=== PATIENT | male | born 1980 | race Two or more races ===

== ENCOUNTER 2017-10-23 08:46 | Inpatient (IN) | payer BC, OTHER ==
[~2017-10-23] VITALS: Ht 180.3 cm; Wt 81.6 kg
[~2017-10-23 08:46] MED LIST: GABA600T PO; MULT-24 PO; QUET25TA PO; ZOLP10TA2 PO
[2017-10-25 15:00] VITALS: BP 128/91
--- NOTE | 2017-10-25 15:15 | NUR ---
INTAKE ASSESSMENT Patient is 36yo male patient presented for admission for supervised withdrawal from heroin, cocaine, xanax and alcohol. Vital signs: 128/91, HR 105-110, R 18, Temp 96.6, 02 sat 95% RA. Patient denies any SOB and chest pain. Patient appears restless at times and sweating and intermittently falls asleep during the interview. Patient is poor historian. Explained to patient (i.e q4h vital, medication handling including narcotics, disposal of any contraband. Patient has no home meds. Patient appears to be stable to proceed with his admission to [facility] for further care.
[2017-10-25] MEDS ORDERED: LOPERAMIDE HCL 2 MG CAPSULE PO PRN ×2 (15:30)
[2017-10-25] MEDS ORDERED: ONDANSETRON 4 MG/2 ML VIAL IM PRN (15:30)
[2017-10-25] MEDS ORDERED: BUPRENORPHINE HCL 2 MG TAB.SUBL SL PRN (15:30)
[2017-10-25] MEDS ORDERED: DICYCLOMINE HCL 20 MG TABLET PO PRN (15:30)
[2017-10-25] MEDS ORDERED: MAG HYDROX/AL HYDROX/SIMETH 30 ML LIQUID UDC PO PRN (15:30)
[2017-10-25] MEDS ORDERED: ACETAMINOPHEN 325 MG TABLET PO PRN (15:30)
[2017-10-25] MEDS ORDERED: MIRALAX 17 GM POWD.PACK PO PRN (15:30)
[2017-10-25] MEDS ORDERED: NICOTINE 14 MG/24HR PATCH TD PRN (15:30)
[2017-10-25] MEDS ORDERED: NICOTINE POLACRILEX 4 MG GUM-PK OF TEN BC PRN (15:30)
[2017-10-25] MEDS ORDERED: hydrALAZINE HCL 50 MG TABLET PO PRN (15:30)
[2017-10-25] MEDS ORDERED: MAGNESIUM HYDROXIDE 30 ML LIQUID UDC PO PRN (15:30)
[2017-10-25] MEDS ORDERED: LORAZEPAM 1 MG TABLET PO PRN ×2 (15:30)
[2017-10-25] MEDS ORDERED: ONDANSETRON ODT 4 MG TAB.RAPDIS SL PRN (15:30)
[2017-10-25] MEDS ORDERED: THIAMINE HCL 200 MG/2 ML VIAL IM ONE (15:30)
[2017-10-25] MEDS ORDERED: LORAZEPAM 2 MG/1 ML VIAL IM PRN (15:30)
[2017-10-25] MEDS ORDERED: diphenhydrAMINE 50 MG CAPSULE PO PRN (15:30)
--- NOTE | 2017-10-25 18:24 | NUR ---
INITIAL ADMISSION NOTE Patient arrived at 17:45pm. Skin assessed upon arrival, BUE cellulitis and abscess noted. Unable to do admission interview with patient. Patient fell asleep right away once he laid in his bed and was difficult to arouse for interview. Patient's breathing is non-labored. Chain Link Fence Installer informed charge nurse. 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 Patient was a poor historian during intake assessment regarding his substance usage. Subtance use history per patient report: 1) Heroin (IV) - pt. reports last use was 10/25/17 (1gm). Patient unable to respond date when 1st used, frequency and how long he has been using at this rate 2) Xanax - pt. reports last use was 10/25/17 (used 10mg) 3) Zolpidem - pt. reports last used was 10/24/17, used 5-10mg 3) Cocaine - last used 10/25/17, pt. unable to state quantity 4) Alcohol - pt. reports last use was 10/25/17 (drank 4-5 shots, drank daily but unable to state how long he used, pt. states he became dependent in his 20's 4) Cannabis - pt unable to states last used and quantity. Rehab history: Longest sobriety was 3-4 years.
--- NOTE | 2017-10-25 19:30 | NUR ---
Start of Shift Note: Received pt in room asleep in bed with no s/s of distress noted. Pt noted to be sedated. Patient is easily arousable when called by his name but falls back to sleep easily. Pt is stable at this time with no s/s of distress noted. Pt is a 36 y.o male admitted today 10/25/17 at 1735 for medically supervised withdrawal from Benzo, ETOH and Opiate. Patient follows a regular diet at home with no known food and drug allergies. Pt wishes to be full Code. Patient has PMHx of Depression & Anxiety. No seizure history noted. Patient is a poor historian. Patient is alert & oriented to name & place & situation. Unable to recall time. Speech is slurred and tangential. No shortness of breath noted. Repsiration even & unlabored. Abdomen soft & non-distended. No nausea/vomiting noted. Patient denies pain/discomfort. No complaints noted. No hand tremors. Pt denies any hallucinations. COWS 1 CIWA noted. Vitals stable. Pt denies any SI/HI. Pt has not provided Urine for drug screen during admission. Will continue to monitor patient. Safety measures in place. Bed locked in lowest position. Both side rails up. Call light within pt's reach.
[2017-10-25 20:30] VITALS: BP 104/62
[2017-10-25 20:56] LABS: BASOPHILS % (AUTO) 0.6 % (0.0-2.0); EOSINOPHILS # (AUTO) 0.2 K/uL (0.0-0.7); EOSINOPHILS % (AUTO) 3.2 % (0.0-7.0); HEMATOCRIT 37.4 % (40-50); HEMOGLOBIN 12.8 G/DL (14.0-18.0); LYMPHOCYTES # (AUTO) 1.6 K/UL (0.8-4.8); LYMPHOCYTES % (AUTO) 25.2 % (20.5-51.5); MEAN CORPUSCULAR HEMOGLOBIN 30.8 UUG (27.0-31.0); MEAN CORPUSCULAR HGB CONC 34 g/dL (32.0-37.0); MONOCYTES # (AUTO) 0.6 K/UL (0.1-1.30); NEUTROPHILS # (AUTO) 3.8 K/UL (1.8-8.9); PLATELET COUNT (AUTO) 315 K/UL (150-450); RED BLOOD CELL COUNT(AUTO) 4.16 MIL/UL (4.7-6.1); WHITE BLOOD COUNT (AUTO) 6.3 K/UL (4.0-11.2)
[2017-10-25] MEDS ORDERED: LORAZEPAM 1 MG TABLET PO SCH (21:00)
[2017-10-25 21:09] LABS: BILIRUBIN,TOTAL 0.6 mg/dL (0.2-1.0); CREATININE 1.1 mg/dL (0.6-1.3); MAGNESIUM 2.2 mg/dL (1.8-2.4); POTASSIUM 3.9 mmol/L (3.5-5.1); TOTAL PROTEIN, SERUM 7.1 g/dL (6.4-8.2)
[2017-10-25] MEDS: GABAPENTIN 300 MG CAPSULE PO SCH (21:49)
[2017-10-25] MEDS: SULFAMETH/TRIMETH 800/160 MG TABLET PO SCH (21:49)
[2017-10-26] VITALS: BP 112/76
[2017-10-26 04:00] VITALS: BP_SYST 118; BP_SYST 96; BP_DIAS 58; BP_DIAS 63
--- NOTE | 2017-10-26 07:11 | NUR ---
End of Shift Note: Pt is a 36 y.o male admitted yesterday 10/25/17 at 1735pm for Benzo, ETOH, & Opiate dependence. Patient has PMHx of Anxiety & Depression. No seizure history noted. Patient is on a regular diet with no known food and drug allergies. Full Code status. Patient to be started on a Subutex and Ativan taper today. Last COWS 1 CIWA 1. Scheduled Ativan @ 2100 was not given last night d/t pt was still sedated. Pt slept most of the night. Pt responds when called by his name but falls back to sleep easily. Pt has abscess on both arms and is receiving ATB Bactrim. Wound consult ordered. Pt had an uneventful night. Pt remained stable and vitals remains WNL during my shift. Pt slept for a total of 10 hours. Fluid intake:1000ml. No voids and no BM noted. Pt still hasnt provided Urine for drug screen.. Encourage pt to increase fluid intake. All needs attended met. Safety precautions are in place. Will endorse pt to day shift nurse.
--- NOTE | 2017-10-26 07:30 | NUR ---
START OF SHIFT Pt 36 y/o male admitted for benzo and etoh dependence. Pt received in room on bed with eyes closed resting, but easily arousable to name. Pt alert and oriented to name, place, and time. Perrla. Skin warm and dry to touch. Respirations even and unlabored. Bilateral hand tremors noted slightly. It was reported that pt slept for 11 hours last night. Bed on lowest position with side rails x2 up for safety. Call light within reach. No distress noted at this time.
[2017-10-26 08:00] VITALS: BP 112/82
[2017-10-26] MEDS ORDERED: TUBERCULIN,PURIF.PROT.DERIV. 5 TU/0.1 ML TEST ID ONE (09:00)
[2017-10-26] MEDS: GABAPENTIN 300 MG CAPSULE PO SCH ×2 (09:10→20:25)
[2017-10-26] MEDS: THIAMINE HCL 100 MG TABLET PO SCH (09:10)
[2017-10-26] MEDS: SULFAMETH/TRIMETH 800/160 MG TABLET PO SCH ×2 (09:10→20:25)
[2017-10-26] MEDS: MULTIVITAMINS,THERAPEUTIC TABLET PO SCH (09:10)
[2017-10-26] MEDS: FOLIC ACID 1 MG TABLET PO SCH (09:10)
[2017-10-26] MEDS: METHOCARBAMOL 750 MG TABLET PO PRN (10:45)
[2017-10-26] MEDS: IBUPROFEN 600 MG TABLET PO PRN ×2 (10:45→20:25)
[2017-10-26] MEDS: LORAZEPAM 1 MG TABLET PO SCH ×4 (10:45→20:25)
[2017-10-26] MEDS: BUPRENORPHINE HCL 2 MG TAB.SUBL SL SCH ×4 (10:45→20:25)
--- NOTE | 2017-10-26 11:03 | NUR ---
PRN Pt states has generalized body pain 5/10. Pt observed grunting with adl's. Motrin po prn per MD order given and tolerated well.
--- NOTE | 2017-10-26 11:04 | NUR ---
PRN Pt states has generalized body aches /10. Robaxin po prn per MD order given and tolerated well.
--- NOTE | 2017-10-26 12:03 | NUR ---
PRN CASTILLO Pt states body pain 12/29
--- NOTE | 2017-10-26 12:04 | NUR ---
PRN EVAL Pt states body aches 12/29
[2017-10-26 12:52] VITALS: BP 120/78
[2017-10-26 13:09] LABS: *AMPHETAMINE, URINE POSITIVE (NEGATIVE); *BARBITURATE, URINE NEGATIVE (NEGATIVE); *CANNABINOID, URINE NEGATIVE (NEGATIVE); *COCCAINE, URINE POSITIVE (NEGATIVE); *OPIATE, URINE POSITIVE (NEGATIVE); *PHENCYCLIDINE SCREEN,URINE NEGATIVE (NEGATIVE)
--- NOTE | 2017-10-26 15:33 | NUR ---
PRN Pt states BLE pain/ aches 6/10. Tylenol po prn per MD order given and tolerated well.
[2017-10-26 16:00] VITALS: BP 128/78
--- NOTE | 2017-10-26 16:05 | NUR ---
CASTILLO Reaves MACHINE SOLE LEVELER here to evaluate pt's abcesses on BUE.
--- NOTE | 2017-10-26 16:33 | NUR ---
PRN CASTILLO Pt states pain 02/26.
--- NOTE | 2017-10-26 18:29 | NUR ---
END OF SHIFT Pt 36 y/o male admitted for etoh and benzo dependence. Pt alert and oriented to name, place, and time. Perrla. Skin warm and moist to touch. Respirations even and unlabored. Bilateral hand tremors noted. Pt with periods of anxiety throughout the day. Pt observed isolative to room throughout the day. Pt did not attend group activity. Pt was seen by MD today. Pt medication compliant and tolerated well. No ASE noted. Bed on lowest position with side rails x2 up for safety. Call light within reach. No distress noted at this time.
--- NOTE | 2017-10-26 19:15 | NUR ---
Start of Shift Note: Received pt in bed with no s/s of distress noted. Pt noted to be awake, alert & oriented x4. Patient is ambulatory with a steady gait. Pt is a 36 y.o male admitted yesterday 10/25/17 at 1735 for medically supervised withdrawal from Benzo, ETOH and Opiate. Patient follows a regular diet at home with no known food and drug allergies. Pt wishes to be full Code. Patient has PMHx of Depression & Anxiety. No seizure history noted. Fall & Seizure precaution noted. Patient placed on a 5-day SUbutex and 5-day Ativan taper and tolerating well. Last CVOWS No shortness of breath noted. Respiration even & unlabored. Abdomen soft & non-distended. No nausea/vomiting noted. Patient presented with complaints of 5/10 generalized body aches, chills, restless legs & anxiety. Hand tremors felt but not seen. Pt denies any hallucinations. Vitals stable. Pt denies any SI/HI. Safety measures in place. Bed locked in lowest position. Both side rails up. Call light within pt's reach.
[2017-10-26 20:00] VITALS: BP 119/69
--- NOTE | 2017-10-26 20:25 | NUR ---
PRN Motrin Patient complains of 5/10 generalized body aches. PRN MOtrin PO administered as ordered. Will continue to monitor for effectiveness of medication.
--- NOTE | 2017-10-26 21:25 | NUR ---
PRN Reassessment PRN medication effective. Patient verbalized relief from body aches. Patient in bed and appears comfortable. No facial grimacing noted. Will continue to monitor.
[2017-10-27] VITALS: BP 105/72
[2017-10-27 05:30] VITALS: BP 133/79
--- NOTE | 2017-10-27 07:18 | NUR ---
End of Shift Note: Pt had an uneventful night. Pt continues on his Ativan & Subutex taper and tolerating well. Last COWS 7 CIWA 3. Pt received PRN Motrin and was effective. Medications effective in controlling withdrawal symptoms. Pt remains stable and vitals remains WNL. Pt is compliant with medications & treatment plan. Will continue to educate pt to increase fluid intake. Pt still asleep at this time. No s/s of distress noted. Pt slept for a total of 7 hours. Fluid intake:1162 ml. Voided 2x with no bowel movement. All needs attended met. Safety precautions are in place. Will endorse pt to day shift nurse.
--- NOTE | 2017-10-27 07:30 | NUR ---
START OF SHIFT Pt 36 y/o male admitted for benzo and etoh dependence. Pt received in room on bed with eyes closed resting, but easily arousable to name. Pt alert and oriented to name, place, and time. Perrla. Skin warm and dry to touch. Respirations even and unlabored. Bilateral hand tremors noted. It was reported that pt slept for 7 hours last night. Bed on lowest position with side rails x2 up for safety. Call light within reach. No distress noted at this time.
[2017-10-27 08:00] VITALS: BP 138/81
[2017-10-27] MEDS: LORAZEPAM 1 MG TABLET PO SCH ×3 (08:46→20:42)
[2017-10-27] MEDS: FOLIC ACID 1 MG TABLET PO SCH (08:46)
[2017-10-27] MEDS: MULTIVITAMINS,THERAPEUTIC TABLET PO SCH (08:46)
[2017-10-27] MEDS: THIAMINE HCL 100 MG TABLET PO SCH (08:46)
[2017-10-27] MEDS: GABAPENTIN 300 MG CAPSULE PO SCH ×3 (08:46→20:42)
[2017-10-27] MEDS: BUPRENORPHINE HCL 2 MG TAB.SUBL SL SCH ×3 (08:46→20:42)
[2017-10-27] MEDS: METHOCARBAMOL 750 MG TABLET PO PRN (08:46)
[2017-10-27] MEDS: SULFAMETH/TRIMETH 800/160 MG TABLET PO SCH ×2 (08:46→20:42)
--- NOTE | 2017-10-27 08:55 | NUR ---
PRN Pt states has BLE aches 04/28. Robaxin po prn per MD order given and tolerated well.
--- NOTE | 2017-10-27 09:55 | NUR ---
PRN EVAL Pt states BLE aches 01/26.
[2017-10-27 12:00] VITALS: BP 130/79
[2017-10-27] MEDS ORDERED: BUPRENORPHINE HCL 2 MG TAB.SUBL SL ONE (12:00)
--- NOTE | 2017-10-27 12:50 | NUR ---
ONE TIME Pt with new order for subutex 2mg sl x1 dose. Pt with cows=11.
--- NOTE | 2017-10-27 13:23 | NUR ---
Therapist prompted client to attend group. Client agreed and did come to group.
--- NOTE | 2017-10-27 13:50 | NUR ---
ONE TIME EVAL cows=3
[2017-10-27] MEDS ORDERED: LORAZEPAM 1 MG TABLET PO PRN ×2 (14:30)
[2017-10-27] MEDS: BACLOFEN 10 MG TABLET PO SCH ×2 (14:30→20:42)
[2017-10-27 16:00] VITALS: BP 134/71
[2017-10-27 16:07] LABS: HEPATITIS B SURFACE AG Negative (Negative)
--- NOTE | 2017-10-27 18:39 | NUR ---
END OF SHIFT Pt 36 y/o male admitted for etoh and benzo dependence. Pt alert and oriented to name, place, and time. Perrla. Skin warm and moist to touch. Respirations even and unlabored. Bilateral hand tremors noted. Pt with periods of anxiety throughout the day. Pt with Kpad on left arm throughout most of the day. Pt observed isolative to room throughout the day. Pt did not attend group activity. Pt was seen by MD today. Pt medication compliant and tolerated well. No ASE noted. Bed on lowest position with side rails x2 up for safety. Call light within reach. No distress noted at this time.
--- NOTE | 2017-10-27 19:15 | NUR ---
Start of Shift Note: Received pt in bed with no s/s of distress noted. Pt noted to be awake, alert & oriented x4. Patient is ambulatory with a steady gait. Pt is a 36 y.o male admitted on 10/25/17 for medically supervised withdrawal from Benzo, ETOH and Opiate. Patient follows a regular diet at home with no known food and drug allergies. Full Code status. Patient has PMHx of Depression & Anxiety. No seizure history noted. Fall & Seizure precaution noted. Patient continues on a 5-day Subutex and 5-day Ativan taper and tolerating well. Last COWS 9 CIWA 4. No shortness of breath noted. Respiration even & unlabored. Abdomen soft & non-distended. No nausea/vomiting noted. Patient presented with complaints of 4/10 generalized body aches, sweating, chills, restless legs & anxiety. Hand tremors felt but not seen. Pt denies any hallucinations. Vitals stable. Pt denies any SI/HI. Safety measures in place. Bed locked in lowest position. Both side rails up. Call light within pt's reach.
[2017-10-27 20:00] VITALS: BP 110/70
[2017-10-27] MEDS: QUETIAPINE FUMARATE 25 MG TABLET PO PRN (23:58)
--- NOTE | 2017-10-27 23:58 | NUR ---
PRn Seroquel Patient unable to fall asleep. PRN Seroquel administered as ordered. Will continue to monitor for effectiveness of medication.
[2017-10-28] VITALS: BP 141/85
[2017-10-28 04:00] VITALS: BP 121/76
--- NOTE | 2017-10-28 07:02 | NUR ---
End of Shift Note: Pt had an uneventful night. Pt continues on his Ativan & Subutex taper and tolerating well. Last COWS 4 CIWA 3 @ 0000. Pt received PRN Seroquel for sleep and was effective. Medications effective in controlling withdrawal symptoms. Pt remains stable and vitals remains WNL. Pt is compliant with medications & treatment plan. Will continue to educate pt to increase fluid intake. Pt still asleep at this time. No s/s of distress noted. Pt slept for a total of 8 hours. Fluid intake:1000 ml. Voided 2x with no bowel movement. All needs attended met. Safety precautions are in place. Will endorse pt to day shift nurse.
--- NOTE | 2017-10-28 07:50 | NUR ---
Start of shift note; Received report from night nurse. Patient is a 36 year old male admitted on 10/25/17 for ETOH/Benzodiazepine/ Opiate dependence. Patient was placed on a 5 day Ativan and 5 day Subutex taper, no adverse reactions noted. Patient reported history of depression, anxiety. Patient is on a full code status, on regular diet, NKA. BLE cellulitis noted, site kept clean and dry. Patient's last COWS is 4 and last CIWA is 3 per endorsement. Patient is on fall and seizure precaution. Bed in lowest position, call light within reach. Will continue to [id number] patient.
[2017-10-28 08:00] VITALS: BP 124/79
[2017-10-28] MEDS: THIAMINE HCL 100 MG TABLET PO SCH (08:57)
[2017-10-28] MEDS: GABAPENTIN 300 MG CAPSULE PO SCH ×3 (08:57→20:50)
[2017-10-28] MEDS: MULTIVITAMINS,THERAPEUTIC TABLET PO SCH (08:57)
[2017-10-28] MEDS: FOLIC ACID 1 MG TABLET PO SCH (08:57)
[2017-10-28] MEDS: SULFAMETH/TRIMETH 800/160 MG TABLET PO SCH ×2 (08:57→20:49)
[2017-10-28] MEDS: BACLOFEN 10 MG TABLET PO SCH (08:57)
[2017-10-28] MEDS: LORAZEPAM 1 MG TABLET PO SCH ×2 (08:57→14:34)
[2017-10-28] MEDS ORDERED: BUPRENORPHINE HCL 2 MG TAB.SUBL SL SCH (09:00)
[2017-10-28] MEDS ORDERED: KETOROLAC TROMETHAMINE 30 MG INJ IM PRN (11:45)
[2017-10-28 12:00] VITALS: BP 125/89
[2017-10-28] MEDS: BACLOFEN 20 MG TABLET PO SCH ×2 (14:34→20:49)
[2017-10-28] MEDS: BUPRENORPHINE HCL 2 MG TAB.SUBL SL SCH ×2 (14:34→20:50)
[2017-10-28 16:00] VITALS: BP 117/69
--- NOTE | 2017-10-28 18:16 | NUR ---
End of shift; Patient is AOX4. Patient is a 36 year old male admitted on 10/25/17 for ETOH/Benzodiazepine/ Opiate dependence. Patient was placed on a 5 day Ativan and 5 day Subutex taper, no adverse reactions noted. Patient reported history of depression, anxiety. Patient is on a full code status, on regular diet, NKA. BLE cellulitis noted, site kept clean and dry. Patient's last COWS is 4 and last CIWA is 3 at 1600. Patient remained compliant with treatment plan and medication regime. Medications were effective in reducing withdrawal symptoms. All safety measures secured. Met all needs.
[2017-10-28 20:00] VITALS: BP 136/97
--- NOTE | 2017-10-28 20:00 | NUR ---
1999 Patient received awake, alert and lying in semi-fowlers position of comfort, watching television. Upon seeing nurse, patient states, " Hi, how are you? The girl before you said that I need my dressing changed on my arm". Patient is oriented to person, place, day, date, time and his personal situation. Patient's color is pink and his skin is clean, warm, dry and intact. Gauge 2x2 and 4x4 dressing over healing, dry, dark-red abscess removed on left inner forearm, abscess area cleaned with sterile normal saline and clean, dry 2x2 and 4x4 gauze dressing applied to this area. No drainage from abscess area and patient denies any pain or other discomfort at this time. Patient's left forearm is lying on warm K-pad. Patient states, " Oh, I guess I didn't need a dressing change, huh?" Patient states that he is drinking plenty of various fluids and is taking his regular diet meal trays consistently, with no gastric issues noted. Patient states that he does try to attend [facility] groups as often as he feels up to doing so, though he did not attend PM group tonight. Vital signs are: 97.8-109-18 136/91, O2 Sat 100%, COWS 3, CIWA 2. Patient was admitted on 10/25/17 for: Alcohol (Vodka), Xanax, Ambien, Heroin, Cocaine, Cannabis and Suboxone withdrawal and he is currently on both a 5-Day Ativan and a 5-Day Subutex taper, both of which he has been apparently tolerating well thus far. Patient is friendly, cooperative and verbally appropriate when interacting with nurse, though his mood/affect is somewhat withdrawn and flat. Patient voices no requests presently. Bed is locked and in lowest position, bed rails are up X 2 and call light within patient's easy reach.
[2017-10-28] MEDS: CLONIDINE HCL 0.1 MG TABLET PO SCH (20:49)
[2017-10-28] MEDS: IBUPROFEN 600 MG TABLET PO PRN (20:50)
--- NOTE | 2017-10-28 20:50 | NUR ---
PRN MEDICATION: Prn Motrin 600 mg p.o. given per request for c/o left inner forearm pain, 5-6/10 pain scale.
[2017-10-28] MEDS ORDERED: LORAZEPAM 1 MG TABLET PO SCH (21:00)
--- NOTE | 2017-10-28 21:50 | NUR ---
REASSESSMENT PRN MEDICATION: Patient states that prn Motrin 600 mg given at 2049 was mostly effective, 2-3/10 pain scale now.
[2017-10-28] MEDS: QUETIAPINE FUMARATE 25 MG TABLET PO PRN (22:11)
--- NOTE | 2017-10-28 22:11 | NUR ---
PRN MEDICATION: Prn Seroquel 50 mg p.o. given per request for sleep medication.
--- NOTE | 2017-10-28 23:11 | NUR ---
REASSESSMENT PRN MEDICATION: Patient is resting comfortably with eyes closed and respirations quiet, even, unlabored at 12.
--- NOTE | 2017-10-29 | NUR ---
Patient sleeping soundly with eyes closed and respirations quiet, deep, regular at 12. Patient does not wish to be awakened for V/S to be done at this time. COWS, CIWA ordered Q 4hrs while awake.
--- NOTE | 2017-10-29 04:00 | NUR ---
Patient continues to sleep soundly with eyes closed and respirations even, unlabored at 12. Left inner forearm gauze dressing is clean, dry and intact. V/S, COWS,CIWA deferred.
--- NOTE | 2017-10-29 06:30 | NUR ---
0630 Patient slept a total of 6 hours and 30 minutes and he had 2 voids and no stools. Total intake was 750 ml p.o. Prn medications given noted separately per floor protocol. V/SS afebrile, last COWS 3, last CIWA 2 at 1999. Patient is presently resting soundly in stable condition with eyes closed and respirations even at 12.
--- NOTE | 2017-10-29 07:54 | NUR ---
Start of shift note; Received report from night nurse. Patient is a 36 year old male admitted on 10/25/17 for ETOH/Benzodiazepine/ Opiate dependence. Patient was placed on a 5 day Ativan and 5 day Subutex taper, no adverse reactions noted. Patient reported history of depression, anxiety. Patient is on a full code status, on regular diet, NKA. BLE cellulitis noted, site kept clean and dry. Patient's last COWS is 3 and last CIWA is 2 per endorsement. Patient is on fall and seizure precaution. Bed in lowest position, call light within reach. Will continue to [id number] patient.
[2017-10-29 08:00] VITALS: BP 117/69
[2017-10-29] MEDS: BUPRENORPHINE HCL 2 MG TAB.SUBL SL SCH ×3 (08:46→20:39)
[2017-10-29] MEDS: SULFAMETH/TRIMETH 800/160 MG TABLET PO SCH ×2 (08:47→20:41)
[2017-10-29] MEDS: BACLOFEN 20 MG TABLET PO SCH ×3 (08:47→20:38)
[2017-10-29] MEDS: LORAZEPAM 1 MG TABLET PO SCH ×3 (08:47→20:38)
[2017-10-29] MEDS: MULTIVITAMINS,THERAPEUTIC TABLET PO SCH (08:47)
[2017-10-29] MEDS: CLONIDINE HCL 0.1 MG TABLET PO SCH ×2 (08:47→20:38)
[2017-10-29] MEDS: GABAPENTIN 300 MG CAPSULE PO SCH ×3 (08:47→20:38)
[2017-10-29] MEDS: THIAMINE HCL 100 MG TABLET PO SCH (08:47)
[2017-10-29] MEDS: FOLIC ACID 1 MG TABLET PO SCH (08:47)
[2017-10-29] MEDS ORDERED: LORAZEPAM 1 MG TABLET PO SCH (09:00)
[2017-10-29 12:00] VITALS: BP 112/70
[2017-10-29] MEDS ORDERED: LIDOCAINE HCL 2% 20 ML VIAL TP ONE (14:45)
[2017-10-29] MEDS ORDERED: LIDOCAINE 2%-EPI 1:100,000 20 ML VIAL TP ONE (14:45)
[2017-10-29 16:00] VITALS: BP 121/79
--- NOTE | 2017-10-29 16:00 | NUR ---
PRN medication; Patient is complaining of pain rated 9/10 related to I&D procedure on left forearm. Toradol 30mg IM given on patient's right deltoid. Patient tolerated procedure well. Site kept clean, dressing is intact. Educated patient regarding post-procedure care, pateitn verbalized understanding. Will continue to monitor patient.
--- NOTE | 2017-10-29 17:00 | NUR ---
Re-assessment; Patient reported pain decreased to 4/10. PRN Toradol noted to be effective.
--- NOTE | 2017-10-29 18:22 | NUR ---
End of shift note; Patient is AOX4. Patient is a 36 year old male admitted on 10/25/17 for ETOH/Benzodiazepine/ Opiate dependence. Patient was placed on a 5 day Ativan and 5 day Subutex taper, no adverse reactions noted. Patient reported history of depression, anxiety. Patient is on a full code status, on regular diet, NKA. BLE cellulitis noted, site kept clean and dry. Patient's last COWS is 4 and last CIWA is 2 at 1600. Patient remained compliant with treatment plan and medication regime. Medications were effective in reducing withdrawal symptoms. All safety measures secured. Met all needs.
[2017-10-29 20:00] VITALS: BP 118/80
--- NOTE | 2017-10-29 20:00 | NUR ---
START OF SHIFT NOTE RECEIVED REPORT FROM DAY SHIFT NURSE. PATIENT IS A 36 YEAR OLD MALE ADMITTED FOR ETOH/BENZO/OPIATE DEPENDENCE. PATIENT IS ON 5 DAY ATIVAN AND 5 DAY SUBUTEX TAPER. PATIENT REPORTS PMH OF DEPRESSION AND ANXIETY. PATIENT CONTINUE ON ANTIBIOTIC FOR ABSCESS AND S/P I&D ON LEFT ARM, NO ADVERSE REACTION. DRESSING INTACT. LAST COWS 4 AND CIWA2. PRN TORADOL IM WAS GIVEN. RECEIVED PATIENT ALERT AND ORIENTED X 4. RESPIRATION EVEN AND UNLABORED . PATIENT REPORTS ANXIETY, SWEATING, NO N/V, ABDOMINAL CRAMPING, STUFFY NOSE AND GENERALIZED BODY ACHES /10. ON FALL/SEIZURE PRECAUTION. SAFETY MEASURES IN PLACE. CALL LIGHT IN REACH. WILL CONTINUE TO MONITOR.
[2017-10-29] MEDS: IBUPROFEN 600 MG TABLET PO PRN (20:38)
--- NOTE | 2017-10-29 20:38 | NUR ---
PRN MOTRIN ADMINISTRATION PATIENT C/O GENERALIZED BODY ACHES 03/28, WILL MONITOR FOR EFFECTIVENESS
--- NOTE | 2017-10-29 21:38 | NUR ---
PRN MOTRIN RE-ASSESSMENT PATIENT STATES MOTRIN IS HELPFUL AND EFFECTIVE. PAIN LEVEL WENT DOWN NO 2/10, TOLERABLE. WILL CONTINUE TO MONITOR
[2017-10-29] MEDS: QUETIAPINE FUMARATE 25 MG TABLET PO PRN (22:10)
--- NOTE | 2017-10-29 22:10 | NUR ---
PRN BENTYL AND SEROQUEL ADMINISTRATION PATIENT C/O ABDOMINAL CRAMPING AND REQUESTS FOR SLEEP AID. WILL MONITOR FOR EFFECTIVENESS
--- NOTE | 2017-10-29 23:10 | NUR ---
PRN SHAREE AND MARIA ML RE-ASSESSMENT PATIENT ASLEEP AT THIS TIME. EYES CLOSED, RESPIRATION EVEN AND UNLABORED. WILL CONTINUE TO MONITOR
--- NOTE | 2017-10-30 | NUR ---
COWS/CIWA DEFERRED PATIENT SLEEPING. COWS/CIWA DEFERRED. VS REFUSED. RESPIRATION EVEN AND UNLABORED. SAFETY MEASURES IN PLACE. CALL LIGHT IN REACH. WILL CONTINUE TO MONITOR
--- NOTE | 2017-10-30 04:00 | NUR ---
COWS/CIWA DEFERRED PATIENT SLEEPING. COWS/CIWA DEFERRED. VS REFUSED. RESPIRATION EVEN AND UNLABORED. SAFETY MEASURES IN PLACE. CALL LIGHT IN REACH. WILL CONTINUE TO MONITOR
--- NOTE | 2017-10-30 07:07 | NUR ---
END OF SHIFT NOTE PATIENT CONTINUE ON ATIVAN AND SUBUTEX TAPER, TOLERATED WELL AND NO ADVERSE REACTION. PATIENT CONTINUE ON ANTIBIOTIC PO FOR ABSCESS AND S/P I&D ON LEFT ARM, NO ADVERSE REACTION. DRESSING INTACT. PATIENT GIVEN PRN MOTRIN, BENTYL AND SEROQUEL. ON FALL/SEIZURE PRECAUTION. SAFETY MEASURES IN PLACE. CALL LIGHT IN REACH. WILL CONTINUE TO MONITOR. SLEPT 7 HOURS. FLUID INTAKE 996 ML. VOIDED X 2 . NO BM. LAST COWS 5 AND CIWA 3.
--- NOTE | 2017-10-30 07:43 | NUR ---
Start of shift note; Received report from night nurse. Patient is a 36 year old male admitted on 10/25/17 for ETOH/Benzodiazepine/ Opiate dependence. Patient was placed on a 5 day Ativan and 5 day Subutex taper, no adverse reactions noted. Patient reported history of depression, anxiety. Patient is on a full code status, on regular diet, NKA. BLE cellulitis noted, site kept clean and dry. Left forearm dressing is intact and clean. Patient's last COWS is 5 and last CIWA is 3 per endorsement. Patient is on fall and seizure precaution. Bed in lowest position, call light within reach. Will continue to [id number] patient. Addendum: 10/30/17 at 1113 by CIRO ANTHONY LVN Patient is on Bactrim DS Q12H for infection/abscess on left forearm. Site kept clean and dry. Dressing is intact.
[2017-10-30 08:00] VITALS: BP 111/70
[2017-10-30] MEDS ORDERED: BUPRENORPHINE HCL 2 MG TAB.SUBL SL SCH (09:00)
[2017-10-30] MEDS ORDERED: LORAZEPAM 1 MG TABLET PO SCH (09:00)
[2017-10-30] MEDS: CLONIDINE HCL 0.1 MG TABLET PO SCH ×3 (09:00→21:23)
[2017-10-30] MEDS: FOLIC ACID 1 MG TABLET PO SCH (09:16)
[2017-10-30] MEDS: MULTIVITAMINS,THERAPEUTIC TABLET PO SCH (09:16)
[2017-10-30] MEDS: THIAMINE HCL 100 MG TABLET PO SCH (09:16)
[2017-10-30] MEDS: GABAPENTIN 300 MG CAPSULE PO SCH ×4 (09:17→21:21)
[2017-10-30] MEDS: SULFAMETH/TRIMETH 800/160 MG TABLET PO SCH ×2 (09:17→21:21)
[2017-10-30] MEDS: BACLOFEN 20 MG TABLET PO SCH ×3 (09:17→21:21)
[2017-10-30 12:00] VITALS: BP 115/73
[2017-10-30 16:00] VITALS: BP 117/61
--- NOTE | 2017-10-30 18:05 | NUR ---
End of shift note; Patient is AOX4. Patient is a 36 year old male admitted on 10/25/17 for ETOH/Benzodiazepine/ Opiate dependence. Patient was placed on a 5 day Ativan and 5 day Subutex taper, no adverse reactions noted. Patient reported history of depression, anxiety. Patient is on a full code status, on regular diet, NKA. BLE cellulitis noted, site kept clean and dry. Left forearm site kept clean and dry, dressing remained intact. Patient's last COWS is 4 and last CIWA is 2 at 1600. Patient remained compliant with treatment plan and medication regime. Medications were effective in reducing withdrawal symptoms. All safety measures secured. Met all needs.
[2017-10-30] MEDS ORDERED: QUET25TA PO (19:43)
[2017-10-30] MEDS ORDERED: IBUP-1955 PO (19:43)
[2017-10-30] MEDS ORDERED: GABA-534 PO (19:43)
[2017-10-30] MEDS ORDERED: SULF1TAB3 PO (19:43)
[2017-10-30] MEDS ORDERED: DICY20TA28 PO (19:43)
[2017-10-30] MEDS ORDERED: CLON0.1T14 PO (19:43)
[2017-10-30] MEDS ORDERED: BACL20TA PO (19:43)
[2017-10-30 20:00] VITALS: BP 109/75
--- NOTE | 2017-10-30 20:00 | NUR ---
START OF SHIFT NOTE RECEIVED REPORT FROM DAY SHIFT NURSE. PATIENT IS MEDICALLY CLEARED TO BE DISCHARGE TOMORROW. PATIENT COMPLETED 5 DAY ATIVAN AND 5 DAY SUBUTEX TAPER, TOLERATED WELL AND NO ADVERSE REACTION. PATIENT CONTINUE ON ANTIBIOTIC PO FOR RIGHT UE ABSCESS AND S/P I& D LEFT FOREARM ABSCESS, NO ADVERSE REACTION. PATIENT DID NOT REQUIRE ANY PRN MEDICATION. LAST COWS 4 AND CIWA 2. RECEIVED PATIENT ALERT AND ORIENTED X 4. RESPIRATION EVEN AND UNLABORED. PATIENT REPORTS ANXIETY DUE TO HIM LEAVING. RELAXATION TECHNIQUE PROVIDED AND POSITIVE ENCOURAGEMENT GIVEN. NO N/V. DENIES ANY PAIN AT THIS TIME. ON FALL/SEIZURE PRECAUTION. SAFETY MEASURES IN PLACE. CALL LIGHT IN REACH. WILL CONTINUE TO MONITOR.
--- NOTE | 2017-10-31 | NUR ---
COWS/CIWA DEFERRED PATIENT SLEEPING. COWS/CIWA DEFERRED. REFUSED VS. RESPIRATION EVEN AND UNLABORED. SAFETY MEASURES IN PLACE. CALL LIGHT IN REACH. WILL CONTINUE TO MONITOR.
--- NOTE | 2017-10-31 04:00 | NUR ---
COWS/CIWA DEFERRED PATIENT SLEEPING. COWS/CIWA DEFERRED. REFUSED VS. RESPIRATION EVEN AND UNLABORED. SAFETY MEASURES IN PLACE. CALL LIGHT IN REACH. WILL CONTINUE TO MONITOR.
--- NOTE | 2017-10-31 07:07 | NUR ---
END OF SHIFT NOTE PATIENT IS MEDICALLY CLEARED TO BE DISCHARGE TODAY. PATIENT COMPLETED 5 DAY ATIVAN AND 5 DAY SUBUTEX TAPER, TOLERATED WELL AND NO ADVERSE REACTION. PATIENT CONTINUE ON ANTIBIOTIC PO FOR RIGHT UE ABSCESS AND S/P I& D LEFT FOREARM ABSCESS, NO ADVERSE REACTION. PATIENT DID NOT REQUIRE ANY PRN MEDICATION DURING SHIFT. ON FALL/SEIZURE PRECAUTION. SAFETY MEASURES IN PLACE. CALL LIGHT IN REACH. WILL CONTINUE TO MONITOR. SLEPT 7 HOURS. FLUID INTAKE 1,355 ML. VOIDED X 2. NO BM. LAST COWS 1 AND CIWA 1.
--- NOTE | 2017-10-31 07:24 | NUR ---
Start of shift note; Received report from night nurse. Patient is a 36 year old male admitted on 10/25/17 for ETOH/Benzodiazepine/ Opiate dependence. Patient was placed on a 5 day Ativan and 5 day Subutex taper, no adverse reactions noted. Patient reported history of depression, anxiety. Patient is on a full code status, on regular diet, NKA. BLE cellulitis noted, site kept clean and dry. Left forearm dressing is intact and clean. Patient's last COWS is 1 and last CIWA is 1 per endorsement.Patient is medically cleared for discharge today. Patient is on fall and seizure precaution. Bed in lowest position, call light within reach. Will continue to [id number] patient.
[2017-10-31 08:00] VITALS: BP 121/75
[2017-10-31 08:32] VITALS: BP 121/75
[2017-10-31] MEDS: SULFAMETH/TRIMETH 800/160 MG TABLET PO SCH (08:32)
[2017-10-31] MEDS: THIAMINE HCL 100 MG TABLET PO SCH (08:32)
[2017-10-31] MEDS: MULTIVITAMINS,THERAPEUTIC TABLET PO SCH (08:32)
[2017-10-31] MEDS: GABAPENTIN 300 MG CAPSULE PO SCH (08:32)
[2017-10-31] MEDS: FOLIC ACID 1 MG TABLET PO SCH (08:32)
[2017-10-31] MEDS: BACLOFEN 20 MG TABLET PO SCH (08:32)
[2017-10-31] MEDS: CLONIDINE HCL 0.1 MG TABLET PO SCH (08:32)
--- NOTE | 2017-10-31 10:22 | NUR ---
Discharge note; Patient is AOX4. Patient is medically cleared for discharge. Educated patient regarding s/p I&D aftercare. Patient was able to demonstrate proper wound care prior to discharge. All valuables, belongings, prescriptions given to patient. Patient was escorted out of the hospital by CONSULTING SOFTWARE [employer]INEER. Patient left at exactly 1022 on 10/31/17. Patient left in a stable condition.
== END 2017-10-31 10:31 | disposition home or self-care (01) | DRG 982 ==
LOC: SRC 10-25 15:04
PROVIDERS: ADMIT Internal Medicine; ATTEND Internal Medicine
PROC: HZ2ZZZZ Detoxification Services for Substance Abuse Treatment (ICD-10-PCS; principal; 2017-10-25)
PROC: HZ31ZZZ Individual Counseling for Substance Abuse Treatment, Behavioral (ICD-10-PCS; 2017-10-27)
PROC: HZ41ZZZ Group Counseling for Substance Abuse Treatment, Behavioral (ICD-10-PCS; 2017-10-27)
PROC: 0JBH0ZZ Excision of Left Lower Arm Subcutaneous Tissue and Fascia, Open Approach (ICD-10-PCS; 2017-10-29)
DX: F10.230 Alcohol dependence with withdrawal, uncomplicated (principal); L03.114 Cellulitis of left upper limb; F12.120 Cannabis abuse with intoxication, uncomplicated; B96.1 Klebsiella pneumoniae [K. pneumoniae] as the cause of diseases classified elsewhere; F11.23 Opioid dependence with withdrawal; D64.9 Anemia, unspecified; S51.841S Puncture wound with foreign body of right forearm, sequela; L03.113 Cellulitis of right upper limb; L02.414 Cutaneous abscess of left upper limb; L02.413 Cutaneous abscess of right upper limb; F14.23 Cocaine dependence with withdrawal; F13.230 Sedative, hypnotic or anxiolytic dependence with withdrawal, uncomplicated; Y90.9 Presence of alcohol in blood, level not specified; F41.9 Anxiety disorder, unspecified; S51.842S Puncture wound with foreign body of left forearm, sequela; X78.8XXS Intentional self-harm by other sharp object, sequela; F32.9 Major depressive disorder, single episode, unspecified; F17.200 Nicotine dependence, unspecified, uncomplicated; Z82.49 Family history of ischemic heart disease and other diseases of the circulatory system
CPT/HCPCS: 36415; 70030-TC; 80307; 80324; 80346; 80353; 80361; 83735; 85025; 86580; 86592; 86705; 86803; 87070; 87077; 87340; 87806; A4663; G0480; J1885; J3490